=== PATIENT | female | born 1960 ===

== ENCOUNTER 2022-05-06 05:29 | Day surgery (SDC) | payer OTHER ==
[~2022-05-06 05:29] MED LIST: ATORVASTATIN CA40 MG PO; SYNTH PO
[2022-05-06] MEDS ORDERED: PERCOCET 5-3251 EACH PO (09:38)
== END 2022-05-06 13:25 | disposition home or self-care (01) ==
LOC: CIR.AMB 05:29
PROVIDERS: ATTEND Surgery
DX: C73 Malignant neoplasm of thyroid gland (principal); Z91.041 Radiographic dye allergy status; Z20.822 Contact with and (suspected) exposure to COVID-19